=== PATIENT | female | born 1995 | race Caucasian/White ===

== ENCOUNTER 2019-05-28 13:33 | Observation (INO) | payer OTHER ==
[2019-05-28] MEDS ORDERED: Sodium Chloride 0.9% 1000 ML 1,000 ML IV STA (14:00)
--- NOTE | 2019-05-28 14:06 | ERPHSYRPT ---
- History of Present Illness Time Seen by Provider: 05/28/19 13:52 Historian: patient Exam Limitations: no limitations Patient Subjective Stated Complaint: Abdominal pain Triage Nursing Assessment: Patient ambulated back to ED and transferred self to bed. Patient A+O X.3 Patient's skin pink, warm and dry. Patient complains of left sided abdominal/flank pain that started yesterday. Patient states pain is constant sharp/stabbing pain 7/10. Patient's abdomen soft and round with BS X 4. Patient complains of burning when urinating, but denies frequency or urgency. Physician History: 23 years old female presented to the ER with chief complaint of sudden onset left lower quadrant sharp pain moderate intensity, aggravated with moments and no significant relieving factors, radiation to her left flank with some dysuria. Denies any nausea or vomiting. Patient started her cycle yesterday and is concerned about cyst rupture as well. No fever or chills reported. Timing/Duration: yesterday Activities at Onset: rest Quality: sharpness Abdominal Pain Onset Location: LLQ Pain Radiation: flank Severity of Pain-Max: moderate Severity of Pain-Current: moderate Modifying Factors: Improves With: nothing Associated Symptoms: back Previous symptoms: no prior history Allergies/Adverse Reactions: acetaminophen [From Lortab] Allergy (Verified 05/28/19 13:39) clarithromycin [From Biaxin] Allergy (Verified 05/28/19 13:39) hydrocodone bitartrate [From Lortab] Allergy (Verified 05/28/19 13:39) LORTAB ELIXER Allergy (Uncoded 05/28/19 13:39) Home Medications: Clonazepam 0.5 mg [Klonopin 0.5 MG] 0.5 mg PO TID 03/02/15 [History] Cyclobenzaprine HCl 10 mg [Flexeril 10 MG] 10 mg PO TID 03/02/15 [History] Labetalol HCl 100 mg [Trandate 100 MG] 100 mg PO DAILY 03/02/15 [History] Hx Tetanus, Diphtheria Vaccination/Date Given: No Hx Influenza Vaccination/Date Given: No Hx Pneumococcal Vaccination/Date Given: No Immunizations Up to Date: Yes - Review of Systems Constitutional: No Symptoms Eyes: No Symptoms Ears, Nose, & Throat: No Symptoms Respiratory: No Symptoms Cardiac: No Symptoms Abdominal/Gastrointestinal: Abdominal Pain Genitourinary Symptoms: Dysuria Musculoskeletal: No Symptoms Skin: No Symptoms Neurological: No Symptoms Psychological: No Symptoms Endocrine: No Symptoms Hematologic/Lymphatic: No Symptoms - Past Medical History Pertinent Past Medical History: Yes Neurological History: No Pertinent History ENT History: No Pertinent History Cardiac History: No Pertinent History Respiratory History: No Pertinent History Endocrine Medical History: No Pertinent History Musculoskeletal History: Arthritis GI Medical History: No Pertinent History History: No Pertinent History Psycho-Social History: Anxiety Female Reproductive Disorders: No Pertinent History - Past Surgical History Past Surgical History: Yes Neuro Surgical History: Brain Shunt Cardiac: No Pertinent History Respiratory: No Pertinent History Gastrointestinal: No Pertinent History Genitourinary: No Pertinent History Musculoskeletal: No Pertinent History Female Surgical History: Section, Tubal Ligation Other Surgical History: tonsils,sinus surgery, D&C - Social History Smoking Status: Current every day smoker How long have you smoked: years Exposure to second hand smoke: Yes Drug Use: none Patient Lives Alone: No - Female History Hx Last Menstrual Period: currently Hx Now: No - Nursing Vital Signs Nursing Vital Signs: Initial Vital Signs Temperature 97.8 F 05/28/19 13:43 Pulse Rate 101 H 05/28/19 13:43 Respiratory Rate 16 05/28/19 13:43 Blood Pressure 131/78 05/28/19 13:43 O2 Sat by Pulse Oximetry 100 05/28/19 13:43 Pain Scale Pain Intensity 2 - Physical Exam General Appearance: no apparent distress Eye Exam: eyes nml inspection Ears, Nose, Throat Exam: normal ENT inspection, TMs normal, pharynx normal Neck Exam: normal inspection, non-tender, supple, full range of motion Respiratory Exam: normal breath sounds, lungs clear Cardiovascular Exam: regular rate/rhythm, normal heart sounds Gastrointestinal/Abdomen Exam: soft, tenderness (LLQ/flank), No rebound Back Exam: normal inspection, normal range of motion Extremity Exam: normal inspection, normal range of motion Neurologic Exam: alert, oriented x 3, cooperative Skin Exam: normal color SpO2 Interpretation: normal SpO2: 100 O2 Delivery: Room Air - Course Nursing assessment & vital signs reviewed: Yes Ordered Tests: Active Orders 24 hr Category Date Time Status Code Status Order ROUTINE Care 05/28/19 16:55 Active IV Insertion STAT Care 05/28/19 14:00 Active ABDOMEN AND PELVIS W CONTRAST [CT] Stat Exams 05/28/19 14:01 Completed PELVIC [US] Stat Exams 05/28/19 17:27 Completed BLOOD CULTURE Stat Lab 05/28/19 19:05 Received CBC W DIFF Stat Lab 05/28/19 14:30 Completed CMP Stat Lab 05/28/19 14:30 Completed HCG,QUALITATIVE URINE Stat Lab 05/28/19 14:30 Completed LIPASE Stat Lab 05/28/19 14:30 Completed UA W/RFX UR CULTURE Stat Lab 05/28/19 14:30 Completed Transfer Order Routine Transfer 05/28/19 Ordered Medication Summary Generic Name Dose Route Start Last Admin Trade Name Freq PRN Reason Stop Dose Admin Sodium Chloride 1,000 mls @ 125 mls/hr 05/28/19 19:00 05/28/19 19:32 Sodium Chloride 0.9% 1000 Ml IV 06/27/19 18:59 125 mls/hr .Q8H GAYATRI Administration Discontinued Medications Generic Name Dose Route Start Last Admin Trade Name Freq PRN Reason Stop Dose Admin Ampicillin Sodium 2 g 05/28/19 18:46 Omnipen 2 Gm IV 05/28/19 18:47 ONCE ONE Sodium Chloride 1,000 mls @ 999 mls/hr 05/28/19 14:00 05/28/19 15:24 Sodium Chloride 0.9% 1000 Ml IV 05/28/19 15:00 Infused .Q1H1M STA Infusion Sodium Chloride Confirm 05/28/19 14:11 Sodium Chloride 0.9% 1000 Ml Administered 05/28/19 14:12 Dose 1,000 mls @ ud .ROUTE .STK-MED ONE Clindamycin HCl/Dextrose 900 mg in 50 mls @ 100 mls/hr 05/28/19 18:44 19:35 Clindamycin-D5w 900 Mg/50 Ml IV 05/28/19 19:13 100 mls/hr STAT STA 100 mls/hr Administration Gentamicin Sulfate/Sodium Chloride 80 mg in 50 mls @ 100 mls/hr 05/28/19 18: 45 Gentamicin 80 Mg/50 Ml Premix IV 05/28/19 19:14 STAT ONE Clindamycin HCl/Dextrose Confirm 05/28/19 19:18 Clindamycin-D5w 900 Mg/50 Ml Administered 05/28/19 19:19 Dose 900 mg in 50 mls @ ud IV .STK-MED ONE Lab/Rad Data: Laboratory Result Diagrams 05/28/19 14:30 05/28/19 14:30 Laboratory Results 05/28/19 05/28/19 05/28/19 Range/Units 14:30 14:30 14:30 WBC (4.0-10.5) K/mm3 RBC (4.1-5.4) M/mm3 Hgb (12.0-16.0) gm/dl Hct (35-47) % MCV (78-100) fl MCH (26-32) pg MCHC (32-36) g/dl RDW (11.5-14.0) % Plt Count (150-450) K/mm3 MPV (7.5-11.0) fl Gran % (36.0-66.0) % Eos # (Auto) (0-0.5) Absolute Lymphs (auto) (1.0-4.6) Absolute Monos (auto) (0.0-1.3) Lymphocytes % (24.0-44.0) % Monocytes % (0.0-12.0) % Eosinophils % (0.00-5.0) % Basophils % (0.0-0.4) % Absolute Granulocytes (1.4-6.9) Basophils # (0-0.4) Sodium 140 (137-145) mmol/L Potassium 3.7 (3.5-5.1) mmol/L Chloride 106 (98-107) mmol/L Carbon Dioxide 27 (22-30) mmol/L Anion Gap 11.0 (5-15) MEQ/L BUN 12 (7-17) mg/dL Creatinine 0.49 L (0.52-1.04) mg/dL Estimated GFR > 60.0 ML/MIN Glucose 139 H (74-106) mg/dL Calcium 9.2 (8.4-10.2) mg/dL Total Bilirubin 0.50 (0.2-1.3) mg/dL AST 15 (14-36) U/L ALT 8 (0-35) U/L Alkaline Phosphatase 81 (38-126) U/L Serum Total Protein 7.2 (6.3-8.2) g/dL Albumin 4.1 (3.5-5.0) g/dL Lipase 53 (23-300) U/L Urine Color DARK YELLOW (YELLOW) Urine Appearance TURBID (CLEAR) Urine pH 5.0 (5-6) Ur Specific [place] 1.027 (1.005-1.025) Urine Protein NEGATIVE (Negative) Urine Ketones NEGATIVE (NEGATIVE) Urine Blood MODERATE (0-5) Sathya/ul Urine Nitrite NEGATIVE (NEGATIVE) Urine Bilirubin NEGATIVE (NEGATIVE) Urine Urobilinogen NEGATIVE (0-1) mg/dL Ur Leukocyte Esterase NEGATIVE (NEGATIVE) Urine WBC (Auto) NONE (0-5) /HPF Urine RBC (Auto) 6-10 (0-2) /HPF U Epithel Cells (Auto) RARE (FEW) /HPF Urine Bacteria (Auto) RARE (NEGATIVE) /HPF Amorphous Crystals MODERATE (NEGATIVE) /HPF Urine Mucus (Auto) MODERATE (NEGATIVE) /HPF Urine Culture Reflexed NO (NO) Urine Glucose 50 (NEGATIVE) mg/dL Urine HCG, Qual NEGATIVE (Negative) 05/28/19 Range/Units 14:30 WBC 18.6 H (4.0-10.5) K/mm3 RBC 4.20 (4.1-5.4) M/mm3 Hgb 12.6 (12.0-16.0) gm/dl Hct 37.2 (35-47) % MCV 88.6 (78-100) fl MCH 30.0 (26-32) pg MCHC 33.9 (32-36) g/dl RDW 12.5 (11.5-14.0) % Plt Count 280 (150-450) K/mm3 MPV 11.0 (7.5-11.0) fl Gran % 76.9 H (36.0-66.0) % Eos # (Auto) 0.41 (0-0.5) Absolute Lymphs (auto) 2.46 (1.0-4.6) Absolute Monos (auto) 1.39 H (0.0-1.3) Lymphocytes % 13.2 L (24.0-44.0) % Monocytes % 7.5 (0.0-12.0) % Eosinophils % 2.2 (0.00-5.0) % Basophils % 0.2 (0.0-0.4) % Absolute Granulocytes 14.35 H (1.4-6.9) Basophils # 0.03 (0-0.4) Sodium (137-145) mmol/L Potassium (3.5-5.1) mmol/L Chloride (98-107) mmol/L Carbon Dioxide (22-30) mmol/L Anion Gap (5-15) MEQ/L BUN (7-17) mg/dL Creatinine (0.52-1.04) mg/dL Estimated GFR ML/MIN Glucose (74-106) mg/dL Calcium (8.4-10.2) mg/dL Total Bilirubin (0.2-1.3) mg/dL AST (14-36) U/L ALT (0-35) U/L Alkaline Phosphatase (38-126) U/L Serum Total Protein (6.3-8.2) g/dL Albumin (3.5-5.0) g/dL Lipase (23-300) U/L Urine Color (YELLOW) Urine Appearance (CLEAR) Urine pH (5-6) Ur Specific [place] (1.005-1.025) Urine Protein (Negative) Urine Ketones (NEGATIVE) Urine Blood (0-5) Sathya/ul Urine Nitrite (NEGATIVE) Urine Bilirubin (NEGATIVE) Urine Urobilinogen (0-1) mg/dL Ur Leukocyte Esterase (NEGATIVE) Urine WBC (Auto) (0-5) /HPF Urine RBC (Auto) (0-2) /HPF U Epithel Cells (Auto) (FEW) /HPF Urine Bacteria (Auto) (NEGATIVE) /HPF Amorphous Crystals (NEGATIVE) /HPF Urine Mucus (Auto) (NEGATIVE) /HPF Urine Culture Reflexed (NO) Urine Glucose (NEGATIVE) mg/dL Urine HCG, Qual (Negative) - Progress Progress: pain not gone completely, re-examined Progress Note: 23 years old was evaluated for left quadrant pain. She is offered pain medication but she refused multiple times. She is given IV fluids. Workup showed white count of 18, I have obtained CT with contrast which showed left adnexal cystic mass with thickened wall and small cul-de-sac fluid with possible tube ovarian abscess. I have obtained heart sound which confirmed the possibility of tubo-ovarian abscess. I have discussed with HIGH LIFT OPERATOR Christy Ramos and is started on antibiotics. We'll keep her n.p.o. until morning when patient is reevaluated by HIGH LIFT OPERATOR. Plan discussed with patient and family and she did not want to stay initially but is agreeable now. 05/28/19 18:49 Discussed with : Cedrick Will see patient in: hospital (observation) Counseled pt/family regarding: lab results, diagnosis, rad results, smoking cessation - Departure Departure Disposition: Observation Clinical Impression: TOA (tubo-ovarian abscess) Condition: Stable Critical Care Time: Yes Critical Care Time(excluding separately billable procedures): Critical 30-74 mins Referrals: TERRI COSME [Primary Care Provider] -
[2019-05-28] MEDS ORDERED: Sodium Chloride 0.9% 1000 ML 1,000 ML ONE ×2 (14:11→19:18)
[2019-05-28 14:39] LABS: Absolute Neutrophil Ct (ANC) 14.35 (1.4-6.9); BASOPHIL % 0.2 % (0.0-0.4); Basophil (Absolute #) 0.03 (0-0.4); Eosinophil % 2.2 % (0.00-5.0); Eosinophil (Absolute #) 0.41 (0-0.5); Hematocrit 37.2 % (35-47); Hemoglobin 12.6 gm/dl (12.0-16.0); Lymphocyte (Absolute #) 2.46 (1.0-4.6); Lymphocytes % 13.2 % (24.0-44.0); Mean Cell Volume 88.6 fl (78-100); Mean Corpuscular Hgb Concent. 33.9 g/dl (32-36); Monocyte (Absolute #) 1.39 (0.0-1.3); Monocytes % 7.5 % (0.0-12.0); Neutrophil % 76.9 % (36.0-66.0); Platelet Count 280 K/mm3 (150-450); Red Cell Distribution Width 12.5 % (11.5-14.0); White Blood Count 18.6 K/mm3 (4.0-10.5)
[2019-05-28 14:50] LABS: ALBUMIN 4.1 g/dL (3.5-5.0); ALKALINE PHOSPHATASE 81 U/L (38-126); BLOOD UREA NITROGEN 12 mg/dL (7-17); CHLORIDE 106 mmol/L (98-107); Calcium 9.2 mg/dL (8.4-10.2); Carbon Dioxide 27 mmol/L (22-30); Creatinine 1 0.49 mg/dL (0.52-1.04); Glucose 139 mg/dL (74-106); LIPASE 53 U/L (23-300); Potassium 3.7 mmol/L (3.5-5.1); SGOT/AST 15 U/L (14-36); SGPT/ALT 8 U/L (0-35); SODIUM 140 mmol/L (137-145); Total Protein 7.2 g/dL (6.3-8.2)
[2019-05-28 14:52] LABS: Amourphous Crystal MODERATE /HPF (NEGATIVE); Appearance TURBID (CLEAR); Bacteria RARE /HPF (NEGATIVE); Bilirubin NEGATIVE (NEGATIVE); Blood MODERATE Ery/ul (0-5); Epithelial Cells RARE /HPF (FEW); Glucose 50 mg/dL (NEGATIVE); Ketones NEGATIVE (NEGATIVE); Leukocyte Esterase NEGATIVE (NEGATIVE); Mucus MODERATE /HPF (NEGATIVE); Nitrite NEGATIVE (NEGATIVE); Protein,Urine Dip NEGATIVE (Negative); Specific Gravity 1.027 (1.005-1.025); Urobilinogen NEGATIVE mg/dL (0-1)
--- NOTE | 2019-05-28 16:34 | XRAY ---
Indication: Left lower quadrant pain. Colitis. Stone. Multiple contiguous axial images obtained through the abdomen and pelvis using 80 cc of Isovue-370 contrast only as ordered. Comparison: None Lung bases demonstrates minimal dependent atelectasis. No infiltrate or effusion. Heart is not enlarged. Noncontrasted stomach and bowel loops appear nonobstructed. Normal appendix. Left adnexa demonstrates a 3.7 x 7.1 x 5.0 cm cystic mass with thick wall and small cul-de-sac fluid possibly ovary in etiology. No free air. Remaining liver, gallbladder, pancreas, spleen, adrenal glands, kidneys, ureters, uterus, and aorta appear normal in CT appearance and attenuation. No pathologic retroperitoneal lymphadenopathy. Osseous structures intact with bilateral L5 spondylolysis without spondylolisthesis. Impression: 1. Large left adnexa cystic mass with thickened wall and small cul-de-sac fluid. Findings possibly complex ovary cyst versus tubo-ovarian abscess. Pelvic sonogram may yield further information. 2. Incidental L5 spondylolysis without spondylolisthesis. 3. Remaining CT abdomen/pelvis with contrast exam is negative.
[2019-05-28] MEDS ORDERED: CLINDAMYCIN-D5W 900 MG/50 ML*** 900 MG/50 ML BAG IV STA (18:44)
--- NOTE | 2019-05-28 18:44 | XRAY ---
Indication: Left lower quadrant pain. Left adnexa cystic mass seen on same-day CT. Two-dimensional transabdominal pelvis sonogram performed. Comparison: None Uterus anteverted measuring 6.0 x 2.8 x 4.6 cm. No focal solid/cystic uterine mass. Endometrial stripe measures 3.2 mm. No endometrial cavity mass or fluid collection. Right ovary measures 2.2 x 1.6 x 2.0 cm and the left measures 2.4 x 2.6 x 3.1 cm with normal color perfusion bilaterally. Left ovary demonstrates a 2.3 cm anechoic cyst. Left adnexa also demonstrates a fluid-filled tubular structure measuring at least 6.1 cm in length and 2.5 cm in diameter corresponding to the CT finding. There are minimal low level internal echoes layering. Wall also appears thickened with mild color Doppler flow. Findings concerning for pyosalpinx/tubo-ovarian abscess. Tiny left adnexal free fluid. Impression: 1. Abnormal appearing left adnexa complex fluid-filled tubular mass as detailed concerning for pyosalpinx/tubo-ovarian abscess. 2. Remaining transabdominal pelvic sonogram is negative with incidental small anechoic left ovary cyst. Comment: Preliminary report was given by the motor vehicle compliance analyst following the exam. I gave telephone report to Dr. Michelle in the ER at 1832 hrs. on May 28, 2019.
[2019-05-28] MEDS ORDERED: GENTAMICIN 80 MG/50 ML PREMIX*** 80 MG/50 ML ML IV ONE ×2 (18:45→20:16)
[2019-05-28] MEDS ORDERED: OMNIPEN 2 GM IV ONE (18:46)
[2019-05-28] MEDS ORDERED: Sodium Chloride 0.9% 1000 ML 1,000 ML IV SCH (19:00)
[2019-05-28] MEDS ORDERED: CLINDAMYCIN-D5W 900 MG/50 ML*** 900 MG/50 ML BAG IV ONE (19:18)
[2019-05-28] MEDS ORDERED: TORAdol 30 mg Injection IV ONE (20:51)
[2019-05-28] MEDS ORDERED: TORAdol 30 mg Injection ONE (20:56)
[2019-05-28 21:13] LABS: CHLAMYDIA DNA NEGATIVE (NEGATIVE); GC DNA Probe NEGATIVE (NEGATIVE)
[2019-05-28] MEDS ORDERED: OMNIPEN 2 GM*** 2 G in Sodium Chloride 100ML MINI-BAG PLUS 100 ML IV ONE (21:54)
[2019-05-28] MEDS ORDERED: MORPHINE SULFATE 4 MG INJ IV PRN (22:02)
[2019-05-28] MEDS ORDERED: Zofran 4 MG/2 ML VIAL IV PRN (22:02)
[2019-05-28] MEDS ORDERED: GENTAMICIN 80 MG/50 ML PREMIX*** 80 MG/50 ML ML IV SCH (22:02)
[2019-05-28] MEDS ORDERED: CLINDAMYCIN-D5W 900 MG/50 ML*** 900 MG/50 ML BAG IV SCH (22:02)
[2019-05-29] MEDS ORDERED: OMNIPEN 2 GM IV SCH (01:00)
[2019-05-29] MEDS ORDERED: GENTAMICIN 80 MG/50 ML PREMIX*** 80 MG/50 ML ML IV ONE (02:54)
[2019-05-29] MEDS ORDERED: CLINDAMYCIN-D5W 900 MG/50 ML*** 900 MG/50 ML BAG IV ONE (02:54)
[2019-05-29] MEDS: OMNIPEN 2 GM IV SCH ×2 (03:12→05:48)
[2019-05-29] MEDS: CLINDAMYCIN-D5W 900 MG/50 ML*** 900 MG/50 ML BAG IV SCH ×4 (03:54→20:54)
[2019-05-29] MEDS ORDERED: GENTAMICIN 80 MG/50 ML PREMIX*** 80 MG/50 ML ML IV SCH ×2 (04:00→13:00)
[2019-05-29] MEDS: Sodium Chloride 0.9% W/ 20 mEq KCl/LITER 1,000 ML IV SCH ×2 (04:24→05:48)
[2019-05-29 04:56] LABS: Absolute Neutrophil Ct (ANC) 10.99 (1.4-6.9); BASOPHIL % 0.2 % (0.0-0.4); Basophil (Absolute #) 0.03 (0-0.4); Eosinophil % 2.8 % (0.00-5.0); Eosinophil (Absolute #) 0.42 (0-0.5); Hematocrit 33.7 % (35-47); Hemoglobin 11.4 gm/dl (12.0-16.0); Lymphocyte (Absolute #) 2.15 (1.0-4.6); Lymphocytes % 14.5 % (24.0-44.0); Mean Cell Volume 88.9 fl (78-100); Mean Corpuscular Hemoglobin 30.1 pg (26-32); Mean Corpuscular Hgb Concent. 33.8 g/dl (32-36); Mean Platelet Volume 11.1 fl (7.5-11.0); Monocyte (Absolute #) 1.26 (0.0-1.3); Monocytes % 8.5 % (0.0-12.0); Platelet Count 254 K/mm3 (150-450); Red Blood Count 3.79 M/mm3 (4.1-5.4); Red Cell Distribution Width 12.6 % (11.5-14.0); White Blood Count 14.9 K/mm3 (4.0-10.5)
[2019-05-29 05:08] LABS: ALBUMIN 3.5 g/dL (3.5-5.0); ALKALINE PHOSPHATASE 88 U/L (38-126); ANION GAP 13.6 MEQ/L (5-15); BLOOD UREA NITROGEN 8 mg/dL (7-17); CHLORIDE 109 mmol/L (98-107); Calcium 8.2 mg/dL (8.4-10.2); Carbon Dioxide 23 mmol/L (22-30); Creatinine 1 0.43 mg/dL (0.52-1.04); Glucose 109 mg/dL (74-106); Potassium 3.5 mmol/L (3.5-5.1); SGOT/AST 12 U/L (14-36); SGPT/ALT 8 U/L (0-35); SODIUM 142 mmol/L (137-145); Total Protein 6.4 g/dL (6.3-8.2)
--- NOTE | 2019-05-29 08:45 | HP ---
CHIEF COMPLAINT: Left lower quadrant abdominal pain. HISTORY OF PRESENT ILLNESS: The patient is a 23 year-old white female who reports she began developing left lower quadrant abdominal pain. She presented to the emergency room due to the pain and evaluation revealed her to have what appeared to be a left tubo-ovarian abscess from pelvic inflammatory disease. PAST MEDICAL/SURGICAL HISTORY: Significant for having had bilateral tubal ligation. She has hypertension and anxiety. HOME MEDICATIONS: Clonazepam 0.5 mg t.i.d. PRN, Lexapro 10 mg t.i.d. PRN, labetalol 100 mg daily. ALLERGIES: ACETAMINOPHEN. CLARITHROMYCIN. HYDROCODONE. PHYSICAL EXAMINATION: The patient's vital signs on admission showed her temperature to be 97.8F, pulse 101, respiratory rate 16 and blood pressure 131/78. O2 saturation 100%. HEENT: Normocephalic, atraumatic. Pupils equal round reactive to light. Extraocular movements intact. Oropharynx is pink and moist. NECK: Supple without lymphadenopathy, thyromegaly or JVD. CHEST: Clear to auscultation. HEART: Regular rate and rhythm. ABDOMEN: Soft. There is tenderness in left lower quadrant. No guarding or rebound. EXTREMITIES: Without cyanosis, clubbing or edema. NEUROLOGIC: The patient is alert and oriented x3. LAB DATA AND TESTS: Laboratory studied revealed HCG and Chlamydia to be negative. UA specific gravity 1.027, red blood cells 6-10 per high power field and no white blood cells. White count 18,600, hemoglobin 12.6, PLT count 280,000. Metabolic panel showed a sugar 139, BUN 12, creatinine 0.49. Electrolytes normal. Liver enzymes were normal. Amylase and lipase were normal. X-ray exams revealed abnormal appearing left adnexal complex, fluid-filled tubular mass consistent with tubo-ovarian abscess. ASSESSMENT: A patient with pelvic inflammatory disease with tubo-ovarian abscess. She has been admitted to the hospital for IV antibiotics. She was placed on ampicillin, gentamicin and Clindamycin. Consultation was obtained from FLOORING SALES MANAGER from Dr. Harrison who feels currently that we will treat with antibiotics and he feels like she may do well without surgery this has been discussed with the patient. She understands and will be treated as planned.
[2019-05-29] MEDS: OMNIPEN 2 GM / NACL 100ML 100 ML IV SCH ×3 (08:47→22:15)
[2019-05-29] MEDS ORDERED: Sodium Chloride 0.9% 10 ML FLUSH Syringe IV PRN (09:30)
[2019-05-29] MEDS: MOTRIN 600 MG PO PRN ×3 (09:52→22:48)
[2019-05-29] MEDS: GARAMYCIN INJ*** 120 MG in Sodium Chloride 0.9% 50 ML 50 ML IV SCH ×2 (13:26→21:37)
[2019-05-29] MEDS: Sodium Chloride 0.9% 10 ML FLUSH Syringe IV SCH ×2 (15:00→21:39)
[2019-05-30] MEDS: OMNIPEN 2 GM / NACL 100ML 100 ML IV SCH ×4 (03:44→21:22)
[2019-05-30] MEDS: CLINDAMYCIN-D5W 900 MG/50 ML*** 900 MG/50 ML BAG IV SCH ×3 (04:17→19:52)
[2019-05-30] MEDS: Sodium Chloride 0.9% 10 ML FLUSH Syringe IV SCH ×3 (04:22→21:23)
[2019-05-30] MEDS: GARAMYCIN INJ*** 120 MG in Sodium Chloride 0.9% 50 ML 50 ML IV SCH ×3 (05:01→20:40)
[2019-05-30 05:24] LABS: Absolute Neutrophil Ct (ANC) 9.36 (1.4-6.9); BASOPHIL % 0.2 % (0.0-0.4); Basophil (Absolute #) 0.03 (0-0.4); Eosinophil % 3.7 % (0.00-5.0); Eosinophil (Absolute #) 0.51 (0-0.5); Hematocrit 33.5 % (35-47); Hemoglobin 11.2 gm/dl (12.0-16.0); Lymphocyte (Absolute #) 2.21 (1.0-4.6); Mean Cell Volume 89.6 fl (78-100); Mean Corpuscular Hemoglobin 29.9 pg (26-32); Mean Corpuscular Hgb Concent. 33.4 g/dl (32-36); Mean Platelet Volume 10.8 fl (7.5-11.0); Monocyte (Absolute #) 1.68 (0.0-1.3); Monocytes % 12.2 % (0.0-12.0); Neutrophil % 67.9 % (36.0-66.0); Platelet Count 253 K/mm3 (150-450); Red Blood Count 3.74 M/mm3 (4.1-5.4); Red Cell Distribution Width 12.4 % (11.5-14.0); White Blood Count 13.8 K/mm3 (4.0-10.5)
[2019-05-30 05:51] LABS: Slide Review 1 YES
[2019-05-30] MEDS: MOTRIN 600 MG PO PRN ×2 (12:37→23:05)
--- NOTE | 2019-05-30 14:30 | PCM.NOTE ---
Date and Time: 05/30/19 1421 Subjective Assessment: Pt is having decreased abd pain, 08/06. Dr. Harrison saw pt this morning. Danni po. - Review of Systems Constitutional: No Fever Abdominal/Gastrointestinal: Abdominal Pain Objective Exam General Appearance: no apparent distress, alert Neurologic Exam: oriented x 3, cooperative Skin Exam: normal color, warm, dry, No rash Eye Exam: eyes nml inspection Ears, Nose, Throat Exam: moist mucous membranes Neck Exam: normal inspection Respiratory Exam: normal breath sounds, lungs clear, No crackles/rales, No rhonchi, No wheezing Cardiovascular Exam: regular rate/rhythm, normal heart sounds, No murmur Gastrointestinal/Abdomen Exam: soft, normal bowel sounds, tenderness (LLQ ttp; RLQ mildly ttp) Extremity Exam: normal inspection, No pedal edema, No swelling OBJECTIVE DATA Vital Signs: Vital Signs - 24 hr Temp Pulse Resp BP Pulse Ox 05/30/19 12:00 99.1 F 93 H 14 131/73 99 05/30/19 07:53 98.1 F 96 H 14 118/72 98 05/30/19 04:00 98.4 F 95 H 16 121/61 97 05/29/19 23:53 97.8 F 97 H 20 120/67 97 05/29/19 20:07 97.7 F 92 H 18 119/63 96 05/29/19 16:00 98.9 F 101 H 16 135/78 97 Pain Assessment - Last Documented Pain Intensity 4 Pain Scale Used 0-10 Pain Scale Intake and Output: Intake & Output 05/28/19 05/29/19 05/30/19 05/31/19 11:59 11:59 11:59 11:59 Intake Total 1343 3745 240 Output Total 1700 3350 Balance -357 395 240 Weight 82.4 kg Lab Results: Lab Results-Last 24 Hours 05/30/19 Range/Units 05:12 WBC 13.8 H (4.0-10.5) K/mm3 RBC 3.74 L (4.1-5.4) M/mm3 Hgb 11.2 L (12.0-16.0) gm/dl Hct 33.5 L (35-47) % MCV 89.6 (78-100) fl MCH 29.9 (26-32) pg MCHC 33.4 (32-36) g/dl RDW 12.4 (11.5-14.0) % Plt Count 253 (150-450) K/mm3 MPV 10.8 (7.5-11.0) fl Gran % 67.9 H (36.0-66.0) % Eos # (Auto) 0.51 H (0-0.5) Absolute Lymphs (auto) 2.21 (1.0-4.6) Absolute Monos (auto) 1.68 H (0.0-1.3) Lymphocytes % 16.0 L (24.0-44.0) % Monocytes % 12.2 H (0.0-12.0) % Eosinophils % 3.7 (0.00-5.0) % Basophils % 0.2 (0.0-0.4) % Absolute Granulocytes 9.36 H (1.4-6.9) Basophils # 0.03 (0-0.4) Slides for Path Review YES Radiology Exams: Radiology Procedures Category Date Time Status ABDOMEN AND PELVIS W CONTRAST [CT] Stat Exams 05/28/19 14:01 Completed PELVIC [US] Routine Exams 06/01/19 08:00 Ordered PELVIC [US] Stat Exams 05/28/19 17:27 Completed Assessment/Plan (1) TOA (tubo-ovarian abscess) Current Visit: Yes Status: Acute Assessment & Plan: On IV clindamycin, gentamycin, and ampicillin. Blood cx neg so far. On morphine 4mg q4h, would transition to po pain meds tomorrow if possible. On Zofran for any nausea. Likely u/s and d/c to home tomorrow. Code(s): N70.93 - SALPINGITIS AND OOPHORITIS, UNSPECIFIED
[2019-05-31] MEDS: OMNIPEN 2 GM / NACL 100ML 100 ML IV SCH ×4 (03:06→23:00)
[2019-05-31] MEDS: CLINDAMYCIN-D5W 900 MG/50 ML*** 900 MG/50 ML BAG IV SCH ×3 (03:39→20:06)
[2019-05-31] MEDS ORDERED: TROUGH DRUG LEVELS IJ ONE (05:00)
[2019-05-31] MEDS: GARAMYCIN INJ*** 120 MG in Sodium Chloride 0.9% 50 ML 50 ML IV SCH ×3 (05:03→21:19)
[2019-05-31] MEDS: Sodium Chloride 0.9% 10 ML FLUSH Syringe IV SCH ×3 (05:04→23:00)
[2019-05-31 05:08] LABS: Hematocrit 33.6 % (35-47); Hemoglobin 11.1 gm/dl (12.0-16.0); Mean Cell Volume 90.1 fl (78-100); Mean Corpuscular Hemoglobin 29.8 pg (26-32); Mean Platelet Volume 10.7 fl (7.5-11.0); Platelet Count 257 K/mm3 (150-450); Red Blood Count 3.73 M/mm3 (4.1-5.4); Red Cell Distribution Width 12.4 % (11.5-14.0); White Blood Count 13.5 K/mm3 (4.0-10.5)
[2019-05-31] MEDS ORDERED: PEAK DRUG LEVELS IJ ONE (06:00)
[2019-05-31] MEDS ORDERED: SUBLIMAZE 100 MCG/2 ML ONE ×3 (09:57→12:24)
[2019-05-31] MEDS ORDERED: Quelicin Fliptop 200 MG/10 ML ONE (09:57)
[2019-05-31] MEDS ORDERED: Zemuron 100 MG/10 ML ONE ×2 (09:57→11:16)
[2019-05-31] MEDS ORDERED: DIPRIVAN 200 MG/20 ML IV ONE (09:57)
[2019-05-31] MEDS ORDERED: Sensorcaine 0.25% 10 ML ONE (10:18)
[2019-05-31] MEDS ORDERED: Lactated Ringers 1,000 ML IV ONE (10:18)
[2019-05-31] MEDS ORDERED: TORAdol 30 mg Injection ONE (10:35)
[2019-05-31] MEDS ORDERED: Decadron 4 MG INJ ONE (10:35)
[2019-05-31] MEDS ORDERED: Zofran 4 MG/2 ML VIAL ONE (10:35)
[2019-05-31] MEDS ORDERED: BRIDION 200MG/2ML IV ONE (10:35)
[2019-05-31] MEDS: Lactated Ringers 1,000 ML IV SCH ×2 (12:11→21:18)
[2019-05-31] MEDS: MOTRIN 600 MG PO PRN (13:05)
[2019-05-31] MEDS ORDERED: PROVENTIL 2.5 MG/3 ML NEB IH PRN (13:36)
--- NOTE | 2019-05-31 13:36 | PCM.NOTE ---
Date and Time: 05/31/19 1334 Subjective Assessment: Pt seen approx 09:30; still having lower abd pain. Also has had some wheezing. Dr. Harrison ordered stat u/s pelvis this morning and is taking the pt to surgery today. - Review of Systems Constitutional: No Fever Abdominal/Gastrointestinal: Abdominal Pain Objective Exam General Appearance: no apparent distress, alert Neurologic Exam: oriented x 3, cooperative Skin Exam: normal color, warm, dry, No rash Respiratory Exam: normal breath sounds, wheezing (faint scattered), No crackles/ rales, No rhonchi Cardiovascular Exam: regular rate/rhythm, normal heart sounds, No murmur Gastrointestinal/Abdomen Exam: soft, tenderness (LLQ, suprapubic, RLQ (worse in LLQ)), No normal bowel sounds (hypoactive but present), No distention, No mass, No guarding, No rebound Extremity Exam: No pedal edema, No swelling Back Exam: normal inspection, No rash OBJECTIVE DATA Vital Signs: Vital Signs - 24 hr Temp Pulse Resp BP Pulse Ox 05/31/19 09:50 98.2 F 87 16 109/64 95 05/31/19 07:21 98.2 F 87 16 109/64 95 05/31/19 04:00 98.5 F 85 16 106/52 97 05/30/19 23:35 97.8 F 92 H 18 136/76 97 05/30/19 20:07 98.0 F 90 20 118/64 98 05/30/19 16:00 98.1 F 103 H 16 121/63 97 Pain Assessment - Last Documented Pain Intensity 4 Pain Scale Used 0-10 Pain Scale Intake and Output: Intake & Output 05/29/19 05/30/19 05/31/19 06/01/19 11:59 11:59 11:59 11:59 Intake Total 1343 3745 1846 Output Total 1700 3350 1700 Balance -357 395 146 Weight 82.4 kg 82.4 kg Lab Results: Lab Results-Last 24 Hours 05/31/19 05/31/19 05/31/19 Range/Units 05:09 05:09 07:00 WBC 13.5 H (4.0-10.5) K/mm3 RBC 3.73 L (4.1-5.4) M/mm3 Hgb 11.1 L (12.0-16.0) gm/dl Hct 33.6 L (35-47) % MCV 90.1 (78-100) fl MCH 29.8 (26-32) pg MCHC 33.0 (32-36) g/dl RDW 12.4 (11.5-14.0) % Plt Count 257 (150-450) K/mm3 MPV 10.7 (7.5-11.0) fl Gentamicin Peak 3.17 L (5.0-12.0) ug/mL Gentamicin Trough 1.54 (0.6-2.0) ug/mL Radiology Exams: Radiology Procedures Category Date Time Status PELVIC [US] Routine Exams 06/01/19 08:00 Stop Req PELVIC [US] Stat Exams 05/31/19 09:13 Taken Assessment/Plan (1) TOA (tubo-ovarian abscess) Current Visit: Yes Status: Acute Assessment & Plan: to surgery with Dr. Harrison Code(s): N70.93 - SALPINGITIS AND OOPHORITIS, UNSPECIFIED (2) Wheezing Current Visit: Yes Status: Acute Assessment & Plan: will start albuterol nebs. WBC count wnl. Code(s): R06.2 - WHEEZING
[2019-05-31] MEDS ORDERED: Oxy-IR 5 MG PO PRN (13:40)
[2019-05-31 14:27] LABS: Appearance SLIGHTLY CLOUDY (CLEAR); Bacteria RARE /HPF (NEGATIVE); Bilirubin NEGATIVE (NEGATIVE); Blood NEGATIVE Ery/ul (0-5); Epithelial Cells FEW /HPF (FEW); Glucose NEGATIVE (NEGATIVE); Ketones NEGATIVE (NEGATIVE); Leukocyte Esterase NEGATIVE (NEGATIVE); Mucus SLIGHT /HPF (NEGATIVE); Nitrite NEGATIVE (NEGATIVE); Protein,Urine Dip NEGATIVE (Negative); Specific Gravity 1.019 (1.005-1.025); Urobilinogen NEGATIVE mg/dL (0-1)
[2019-05-31] MEDS: TYLENOL EXTRA STRENGTH 500 MG PO SCH ×2 (15:32→21:32)
--- NOTE | 2019-05-31 18:00 | XRAY ---
Indication: Ovarian abscess. Two-dimensional transabdominal pelvic sonogram performed. Comparison: May 28, 2019. Left adnexa complex fluid-filled tubular mass reidentified today measuring 6.2 x 3.1 cm, previously 6.1 x 2.5 cm. Again hyperemic color Doppler flow and low level internal echoes again worrisome for pyosalpinx/tubo-ovarian abscess. Right ovary measures 2.6 x 1.9 x 2.1 cm and appears sonographically unremarkable. Uterus anteverted measuring 8.8 x 3.3 x 4.2 cm and appears homogeneous in echogenicity. Endometrial stripe measures 2.3 mm. No intracavitary mass or fluid collection. Impression: Continued abnormal left adnexa complex fluid-filled mass as detailed with again sonographic features worrisome for pyosalpinx/tubo-ovarian abscess. Remaining transabdominal pelvic sonogram is negative. Comment: Preliminary report was given to the ordering clinician.
[2019-05-31] MEDS: TORAdol 30 mg Injection IV SCH (18:06)
[2019-05-31] MEDS ORDERED: Acidophilus TABLET PO SCH (22:00)
[2019-06-01] MEDS: TORAdol 30 mg Injection IV SCH ×2 (00:12→05:32)
[2019-06-01] MEDS: TYLENOL EXTRA STRENGTH 500 MG PO SCH (03:34)
[2019-06-01] MEDS: OMNIPEN 2 GM / NACL 100ML 100 ML IV SCH (03:43)
[2019-06-01] MEDS: CLINDAMYCIN-D5W 900 MG/50 ML*** 900 MG/50 ML BAG IV SCH (04:07)
[2019-06-01 05:07] LABS: Absolute Neutrophil Ct (ANC) 12.69 (1.4-6.9); BASOPHIL % 0.1 % (0.0-0.4); Basophil (Absolute #) 0.01 (0-0.4); Eosinophil % 0.2 % (0.00-5.0); Eosinophil (Absolute #) 0.04 (0-0.5); Hematocrit 30.7 % (35-47); Hemoglobin 10.2 gm/dl (12.0-16.0); Lymphocyte (Absolute #) 2.35 (1.0-4.6); Lymphocytes % 14.4 % (24.0-44.0); Mean Cell Volume 90.3 fl (78-100); Mean Corpuscular Hgb Concent. 33.2 g/dl (32-36); Monocyte (Absolute #) 1.19 (0.0-1.3); Monocytes % 7.3 % (0.0-12.0); Platelet Count 287 K/mm3 (150-450); Red Cell Distribution Width 12.2 % (11.5-14.0); White Blood Count 16.3 K/mm3 (4.0-10.5)
[2019-06-01 05:18] LABS: ALBUMIN 3.3 g/dL (3.5-5.0); ALKALINE PHOSPHATASE 111 U/L (38-126); ANION GAP 14.2 MEQ/L (5-15); BLOOD UREA NITROGEN 6 mg/dL (7-17); CHLORIDE 107 mmol/L (98-107); Calcium 8.4 mg/dL (8.4-10.2); Carbon Dioxide 26 mmol/L (22-30); Creatinine 1 0.43 mg/dL (0.52-1.04); Glucose 112 mg/dL (74-106); Potassium 3.7 mmol/L (3.5-5.1); SGOT/AST 24 U/L (14-36); SGPT/ALT 32 U/L (0-35); SODIUM 143 mmol/L (137-145); Total Protein 6.2 g/dL (6.3-8.2)
[2019-06-01] MEDS: Sodium Chloride 0.9% 10 ML FLUSH Syringe IV SCH (05:32)
[2019-06-01] MEDS: GARAMYCIN INJ*** 120 MG in Sodium Chloride 0.9% 50 ML 50 ML IV SCH (05:32)
[2019-06-01 07:32] VITALS: BP 118/63; PULSE 82; O2SAT 93
--- NOTE | 2019-06-01 07:58 | PCM.DCORD ---
- Discharge Discharge Date: 06/01/19 Prescriptions: No Action No Reportable Medications [No Reported Medications] Instructions: Tuboovarian Abscess (DC)
--- NOTE | 2019-06-01 08:04 | PCM.DS ---
Discharge Summary Date of Admission: 05/28/19 21:53 Date of Discharge: 06/01/19 Admitting Physician: TERRI COSME Consults: Consults on Case 05/29/19 07:50 Consult Physician ROUTINE Primary Care Provider: TERRI COSME Allergies Allergies acetaminophen [From Lortab] Allergy (Verified 05/28/19 13:39) clarithromycin [From Biaxin] Allergy (Verified 05/28/19 13:39) hydrocodone bitartrate [From Lortab] Allergy (Verified 05/28/19 13:39) LORTAB ELIXER Allergy (Uncoded 05/28/19 13:39) Hospital Summary - Hospital Course Hospital Course: PT ADMITTED ON SATURDAY NIGHT FOR SUSPECTED TUBOOVARIAN ABSCESS AND WAS PLACED ON AMP/GEN/[place] [address]. PT RESPONDED TO ANTIBIOTICS UNTIL IT WAS NOTED SATURDAY HAD MINIMAL CHANGE WITH WBC HOWEVER PT WAS CLINICALLY IMPROVING. PT SUBSEQUENTLY UNDERWENT DIAGNOSTIC LAPAROSCOPY WITH LYSIS OF ABD/ PELVIC ADHESIONS AND DRAINAGE OF LEFT OVARIAN HEMORRHAGIC CYST. PT DURING POSTOP PERIOD DID WELL [place] [address]. PT HOWEVER FEELING CLINICALLY WELL. DW CASE WITH DR JAIME ALANIS GYNONC AT [facility] IN [facility] FOR WHICH HE RECOMMENED HER TO COME AND SEE HER THIS WEEK AND WILL DW HER OPTIONS OF POSSIBLY PERCUTANEOUS DRAINAGE IF STILL THERE OR SUBSEQUENT SURGERY SECONDARY TO OBLITERATION OF HER LEFT ADNEXA. PT UNDERSTANDS EVERYTHING THAT WAS DISCUSSED WITH HER TODAY AND WILL ANTICIPATE A CALL FROM DR GIORDANO OFFICE TODAY FOR SUBSEQUENT FU. PT AT THIS TIME STABLE FOR DISCHARGE AND WILL GO HOME ON LOVOFLOXACIN 500MG DAILY AND FLAGYL 500MG BID FOR TOTAL OF 14 DAYS. - Vitals & Intake/Output Vital Signs: Vital Signs Temperature 98.1 F 06/01/19 07:31 Pulse Rate 82 06/01/19 07:31 Respiratory Rate 16 06/01/19 07:31 Blood Pressure 118/63 06/01/19 07:31 O2 Sat by Pulse Oximetry 93 L 06/01/19 07:31 Intake & Output: Intake & Output 05/29/19 05/30/19 05/31/19 06/01/19 11:59 11:59 11:59 11:59 Intake Total 1343 3745 1846 2296 Output Total 1700 3350 1700 950 Balance -357 127 492 4208 Weight 82.4 kg 82.4 kg - Lab Result Diagrams: 06/01/19 04:45 06/01/19 04:45 Lab Results-Last 24 Hrs: Lab Results-Last 24 Hours 05/31/19 05/31/19 06/01/19 Range/Units 07:00 10:24 04:45 WBC 16.3 H (4.0-10.5) K/mm3 RBC 3.40 L (4.1-5.4) M/mm3 Hgb 10.2 L (12.0-16.0) gm/dl Hct 30.7 L (35-47) % MCV 90.3 (78-100) fl MCH 30.0 (26-32) pg MCHC 33.2 (32-36) g/dl RDW 12.2 (11.5-14.0) % Plt Count 287 (150-450) K/mm3 MPV 11.0 (7.5-11.0) fl Gran % 78.0 H (36.0-66.0) % Eos # (Auto) 0.04 (0-0.5) Absolute Lymphs (auto) 2.35 (1.0-4.6) Absolute Monos (auto) 1.19 (0.0-1.3) Lymphocytes % 14.4 L (24.0-44.0) % Monocytes % 7.3 (0.0-12.0) % Eosinophils % 0.2 (0.00-5.0) % Basophils % 0.1 (0.0-0.4) % Absolute Granulocytes 12.69 H (1.4-6.9) Basophils # 0.01 (0-0.4) Sodium (137-145) mmol/L Potassium (3.5-5.1) mmol/L Chloride (98-107) mmol/L Carbon Dioxide (22-30) mmol/L Anion Gap (5-15) MEQ/L BUN (7-17) mg/dL Creatinine (0.52-1.04) mg/dL Estimated GFR ML/MIN Glucose (74-106) mg/dL Calcium (8.4-10.2) mg/dL Total Bilirubin (0.2-1.3) mg/dL AST (14-36) U/L ALT (0-35) U/L Alkaline Phosphatase (38-126) U/L Serum Total Protein (6.3-8.2) g/dL Albumin (3.5-5.0) g/dL Urine Color YELLOW (YELLOW) Urine Appearance SLIGHTLY CLOUDY (CLEAR) Urine pH 5.0 (5-6) Ur Specific [place] 1.019 (1.005-1.025) Urine Protein NEGATIVE (Negative) Urine Ketones NEGATIVE (NEGATIVE) Urine Blood NEGATIVE (0-5) Sathya/ul Urine Nitrite NEGATIVE (NEGATIVE) Urine Bilirubin NEGATIVE (NEGATIVE) Urine Urobilinogen NEGATIVE (0-1) mg/dL Ur Leukocyte Esterase NEGATIVE (NEGATIVE) Urine WBC (Auto) 16-25 (0-5) /HPF Urine RBC (Auto) 3-5 (0-2) /HPF U Epithel Cells (Auto) FEW (FEW) /HPF Urine Bacteria (Auto) RARE (NEGATIVE) /HPF Urine Mucus (Auto) SLIGHT (NEGATIVE) /HPF Urine Glucose NEGATIVE (NEGATIVE) mg/dL Gentamicin Peak 3.17 L (5.0-12.0) ug/mL 06/01/19 Range/Units 04:45 WBC (4.0-10.5) K/mm3 RBC (4.1-5.4) M/mm3 Hgb (12.0-16.0) gm/dl Hct (35-47) % MCV (78-100) fl MCH (26-32) pg MCHC (32-36) g/dl RDW (11.5-14.0) % Plt Count (150-450) K/mm3 MPV (7.5-11.0) fl Gran % (36.0-66.0) % Eos # (Auto) (0-0.5) Absolute Lymphs (auto) (1.0-4.6) Absolute Monos (auto) (0.0-1.3) Lymphocytes % (24.0-44.0) % Monocytes % (0.0-12.0) % Eosinophils % (0.00-5.0) % Basophils % (0.0-0.4) % Absolute Granulocytes (1.4-6.9) Basophils # (0-0.4) Sodium 143 (137-145) mmol/L Potassium 3.7 (3.5-5.1) mmol/L Chloride 107 (98-107) mmol/L Carbon Dioxide 26 (22-30) mmol/L Anion Gap 14.2 (5-15) MEQ/L BUN 6 L (7-17) mg/dL Creatinine 0.43 L (0.52-1.04) mg/dL Estimated GFR > 60.0 ML/MIN Glucose 112 H (74-106) mg/dL Calcium 8.4 (8.4-10.2) mg/dL Total Bilirubin 0.40 (0.2-1.3) mg/dL AST 24 (14-36) U/L ALT 32 (0-35) U/L Alkaline Phosphatase 111 (38-126) U/L Serum Total Protein 6.2 L (6.3-8.2) g/dL Albumin 3.3 L (3.5-5.0) g/dL Urine Color (YELLOW) Urine Appearance (CLEAR) Urine pH (5-6) Ur Specific [place] (1.005-1.025) Urine Protein (Negative) Urine Ketones (NEGATIVE) Urine Blood (0-5) Sathya/ul Urine Nitrite (NEGATIVE) Urine Bilirubin (NEGATIVE) Urine Urobilinogen (0-1) mg/dL Ur Leukocyte Esterase (NEGATIVE) Urine WBC (Auto) (0-5) /HPF Urine RBC (Auto) (0-2) /HPF U Epithel Cells (Auto) (FEW) /HPF Urine Bacteria (Auto) (NEGATIVE) /HPF Urine Mucus (Auto) (NEGATIVE) /HPF Urine Glucose (NEGATIVE) mg/dL Gentamicin Peak (5.0-12.0) ug/mL Micro Results-Entire Visit: Microbiology 05/28/19 19:05 Blood Culture - Preliminary Blood NO GROWTH TO DATE 05/28/19 19:05 Blood Culture - Preliminary Blood NO GROWTH TO DATE - Radiology Exams Ordered Rad Exams-Entire Visit: Radiology Procedures Category Date Time Status PELVIC [US] Stat Exams 05/31/19 09:13 Completed - Procedures and Test Procedures and Tests throughout Hospitalization: Therapy Orders & Screens 05/28/19 22:45 Smoking Cessation Education ONCE Comment: Diagnosis: Tubo ovarian abcess Smoking Status: Current every day smoker How long have you smoked: years Approximately how many cigarettes per day: 1-2 pk a day Do you dip or chew tobacco: No 05/31/19 14:08 Respiratory Therapy Assessment DAILY Comment: Diagnosis: Tubo ovarian abcess 05/31/19 14:09 Peak Expiratory Flow Rate ONCE Comment: Reason For Exam: Diagnosis: Tubo ovarian abcess - Discharge Disposition: Home, Self-Care Condition: Stable Prescriptions: No Action No Reportable Medications [No Reported Medications] Instructions: Tuboovarian Abscess (DC) Follow up with: TERRI COSME [Primary Care Provider] - 1 Week CARIE VEGA DO [ACTIVE STAFF] - 1 Week
--- NOTE | 2019-06-01 11:02 | OP ---
SURGERY DATE/TIME: 05/31/2019 1010 PREOPERATIVE DIAGNOSES: 1) Pelvic pain. 2) Left tubo-ovarian abscess. POSTOPERATIVE DIAGNOSES: 1) Pelvic inflammatory disease. 2) Left ovarian hemorrhagic cyst. 3) Extensive abdominopelvic adhesion. PROCEDURES: 1) Diagnostic laparoscopy with lysis of extensive abdominopelvic adhesions. 2) Drainage of left ovarian hemorrhagic cyst 5 x 4 cm. SURGEON: Blake Harrison D.O. JAVA SYSTEMS ANALYST: Lola Sotomayor forensic science technician. ANESTHESIA: General. ESTIMATED BLOOD LOSS: Minimal. COMPLICATIONS: None. INDICATIONS: The risks, benefits, indications and alternatives of the procedure were reviewed with the patient prior to procedure. The patient understood the risk of infection, bleeding, bowel injury, bladder injury, ureteral injury, pelvic infection, thromboembolic disorder and understands these risk factors and desires to have this procedure as a possible need to alleviate her current medical condition. DESCRIPTION OF PROCEDURE AND FINDINGS: At this point the patient is taken to the operating room, given general sedation, placed in the supine position where she was prepped and draped in the usual sterile fashion. A 5 mm skin incision was made approximately 2 cm above the umbilicus where a 5 mm trocar and sleeve were advanced under direct visualization. An additional incision was made at left middle quadrant region where a 5 mm incision was made and a 5 mm trocar was advanced under direct visualization as well. A third incision was made about 2 cm above the symphysis pubis where a 5 mm trocar and sleeve were advanced under direct visualization. From this point visualization of the abdominal region appeared to have apron-like omental adhesion between the bowel and anterior abdominal wall where the LigaSure was used to separate the significant amount of omental adhesion located on the anterior abdominal wall where it was and released from the anterior abdominal wall without complication. Hemostasis was obtained. At this point there appeared to be dense adhesions between the left adnexa and left colon. The right adnexa appeared to be within normal limits. The left ovary appeared to be stuck in the left lower cul-de-sac. From this point it was attempted to bring the left ovary from the posterior cul-de-sac by sharp dissection. There were adhesions that were taken down on the left between the left colon and the left abdominal side wall which was taken down with LigaSure. There appeared to be approximately 5 x 4 cm cystic mass on the ovary for which the J-loop cautery was used and applied on the surface with extrusion of bloody fluid was removed and suctioned via suction irrigation. Cystic lesion was approximately 5 x 4 cm. From this point an attempt was made to dissect with LigaSure where it was clamped, coagulated and cut the round ligament with the anterior broad ligament was dissected as well as posterior broad ligament where there was no extrusion of pustular fluid that had been noted or suspected on the ultrasound. There appeared to be significant inflammation and dense adhesions between the left colon and the left adnexa where there was no visualization of the fimbriated ends. However there was thick tissue, dense tissue between the left adnexa with colon that could not be . From this point additional adhesions were removed and dissected from the posterior cul-de-sac in attempt to try to bring the ovary more anteriorly and was done so with minimal bleeding that was noted. From this point there was extension irrigation that was taken place and again there was no abscess that was visualized other than dense adhesions, dense tissue located on the left adnexa that was densely adhered to the left side of the colon. From this point all instruments were then removed from the abdominal region and the incisions were closed with 4-0 Monocryl sutures with Dermabond on the surface. The patient was then taken out of anesthesia and was then taken to the recovery room in stable condition. All instruments and laps were accounted for x2.
== END 2019-06-01 08:39 | disposition home or self-care (01) ==
LOC: ED 13:33 → MED SURG 21:53
PROVIDERS: ADMIT Family Medicine; ATTEND Family Medicine
DX: N70.93 Salpingitis and oophoritis, unspecified (principal); N83.202 Unspecified ovarian cyst, left side; N73.9 Female pelvic inflammatory disease, unspecified; N73.6 Female pelvic peritoneal adhesions (postinfective); I10 Essential (primary) hypertension; R06.2 Wheezing; Z79.899 Other long term (current) drug therapy
CPT/HCPCS: 36415; 58660; 58679; 74177; 76856; 80053; 80170; 81001; 83690; 84703; 85025; 85027; 87040; 87086; 87491; 87591; 94150; 94640; 94760; 96360; 96365; 96367; 96374; 99291; G0378; 36000; 96375; 99140; 99218; 99224; 99285; J0290; J0330; J1100; J1580; J1885; J2405; J2704; J3010; J7609; A9270-GY